=== PATIENT | female | born 1990 | race Caucasian/White ===

== ENCOUNTER 2019-01-30 16:30 | Emergency (ER) | payer OTHER ==
--- NOTE | 2019-01-30 17:55 | Emergency Department Report ---
Chief Complaint: Upper Respiratory Infection Stated Complaint: SINUS INFECTION Time Seen by Provider: 01/30/19 17:52 - HPI History of Present Illness: abc intact vss simple urti MSE screening note: Focused history and physical exam performed. Due to findings the following was ordered: ED Disposition for MSE Condition: Stable
[2019-01-30 18:05] VITALS: BP 96/65
--- NOTE | 2019-01-30 18:50 | Emergency Department Report ---
Minor Respiratory - HPI Chief Complaint: Upper Respiratory Infection Stated Complaint: SINUS INFECTION Time Seen by Provider: 01/30/19 17:52 Pain Location: Chest Severity: mild Minor Respiratory: Yes Rhinorrhea, Yes Sore Throat, Yes Able to Tolerate Fluids, No Ear Pain, No Cough, No Sick Contacts, No Hemoptysis, No Chest Pain, No Shortness of Breath, No Fever Other History: 28 YO WITH SINUS PAIN AND CONGESTION ED Review of Systems ROS: Stated complaint: SINUS INFECTION Other details as noted in HPI Comment: All other systems reviewed and negative ED Past Medical Hx - Past Medical History Previous Medical History?: No - Surgical History Additional Surgical History: tubes in ears. - Social History Smoking Status: Never Smoker Substance Use Type: Alcohol - Medications Home Medications: Home Medications Medication Instructions Recorded Confirmed Last Taken Type Amoxicillin [Trimox CAP] 500 mg PO BID #20 capsule 01/30/19 Unknown Rx Cetirizine HCl [ZyrTEC] 10 mg PO DAILY #30 capsule 01/30/19 Unknown Rx Fluticasone [Flonase] 1 spray NS QDAY #1 bottle 01/30/19 Unknown Rx predniSONE [Deltasone] 20 mg PO DAILY #5 tablet 01/30/19 Unknown Rx Minor Respiratory Exam - Exam General: Vital signs noted. No distress. Alert and acting appropriately. HEENT: Yes Pharyngeal Erythema, Yes Rhinorrhea, No Pharyngeal Exudates, No Moist Mucous Membranes, No Conjuctival Injection, No Frontal Tenderness, No Maxillary Tenderness Ear: Neither TM Bulge, Neither TM Erythema, Neither EAC Pain, Neither EAC Discharge Neck: Yes Supple, No Adenopathy Lungs: Yes Good Air Exchange, No Wheezes, No Ronchi Heart: Yes Regular, No Murmur Abdomen: Yes Normal Bowel Sounds, No Tenderness, No Peritoneal Signs Skin: No Rash, No Edema Neurologic: Alert and oriented, no deficits. Musculoskeletal: Unremarkable. ED Course Vital Signs 01/30/19 18:03 Temperature 97.9 F Pulse Rate 70 Respiratory 18 Rate Blood Pressure 96/65 [Right] O2 Sat by Pulse 99 Oximetry ED Medical Decision Making - Medical Decision Making Vital Signs 01/30/19 18:03 Temperature 97.9 F Pulse Rate 70 Respiratory 18 Rate Blood Pressure 96/65 [Right] O2 Sat by Pulse 99 Oximetry SIMPLE URTI DC HOME WITH DC PLAN OF CARE Critical care attestation.: If time is entered above; I have spent that time in minutes in the direct care of this critically ill patient, excluding procedure time. ED Disposition Clinical Impression: URTI (acute upper respiratory infection), Sinusitis Disposition: DC-01 TO HOME OR SELFCARE Is pt being admited?: No Does the pt Need Aspirin: No Condition: Stable Instructions: Sinusitis (ED) Additional Instructions: HYDRATE WELL WITH WATER MEDS ORDERED TODAY FOLLOW UP PCP REFERRAL BELOW Prescriptions: predniSONE [Deltasone] 20 mg PO DAILY #5 tablet Fluticasone [Flonase] 1 spray NS QDAY #1 bottle Amoxicillin [Trimox CAP] 500 mg PO BID #20 capsule Cetirizine HCl [ZyrTEC] 10 mg PO DAILY #30 capsule Referrals: NIRMALA PONCE MD [Primary Care Provider] - 3-5 Days Forms: Work/School Release Form(ED) Time of Disposition: 18:49
== END 2019-01-30 18:55 | disposition home or self-care (01) ==
LOC: ED 16:30
DX: J01.90 Acute sinusitis, unspecified (principal)